=== PATIENT | male | born 1995 | race Caucasian/White ===

== ENCOUNTER 2018-05-06 22:46 | Emergency (ER) | payer BC ==
[2018-05-07] MEDS ORDERED: Oxymetazoline 0.05% NASAL SPR* 15 ML BTL RIGHT NARE ONE (00:16)
--- NOTE | 2018-05-07 00:28 | ED ---
Throat Pain/Nasal Congestion - HPI Summary HPI Summary: Patient is an otherwise healthy 22-year-old male presenting to the ED with right -sided nosebleed since approximately 8:30 PM this evening. He states the nosebleed has been intermittent. He has had this in the past with weather changes, but usually this will stop after several minutes. He has been using paper towels and gauze, but has not used any pinching motion or any medications to cook helper dessert in the cessation of bleeding. He denies any blood disorders, blood thinners. He does endorse having a glass of wine around 8:30 when this started. - History of Current Complaint Chief Complaint: EDEpistaxis Time Seen by Provider: 05/07/18 00:00 Hx Obtained From: Patient Onset/Duration: Sudden Onset Severity: Moderate Associated Signs And Symptoms: Positive: Negative - Epiglottits Risk Factors Epiglottis Risk Factors: Negative - Allergies/Home Medications Allergies/Adverse Reactions: Allergies Allergy/AdvReac Type Severity Reaction Status Date / Time No Known Allergies Allergy Verified 05/06/18 22:57 Home Medications: Home Medications NK [No Home Medications Reported] 05/07/18 [History Confirmed 05/07/18] PMH/Surg Hx/FS Hx/Imm Hx Previously Healthy: Yes - Immunization History Hx Pertussis Vaccination: No Immunizations Up to Date: Yes Infectious Disease History: No Infectious Disease History: Denies: Traveled Outside the [place] in Last 30 Days - Social History Occupation: Unemployed Lives: Dormitory/Roommates Alcohol Use: Occasionally Hx Substance Use: No Substance Use Type: Reports: None Hx Tobacco Use: No Smoking Status (MU): Never Smoked Tobacco Review of Systems Constitutional: Negative Negative: Fever, Chills, Fatigue, Skin Diaphoresis Positive: Other - epistaxis Negative: Palpitations, Chest Pain Negative: Shortness Of Breath, Cough Genitourinary: Negative Positive: no symptoms reported, see HPI Negative: Arthralgia, Myalgia Negative: Rash, Bruising Neurological: Negative All Other Systems Reviewed And Are Negative: Yes - neck Physical Exam Triage Information Reviewed: Yes Vital Signs On Initial Exam: Initial Vitals Temp Pulse Resp BP Pulse Ox 99.2 F 75 16 147/87 96 05/06/18 22:54 05/06/18 22:54 05/06/18 22:54 05/06/18 22:54 05/06/18 22:54 Vital Signs Reviewed: Yes Appearance: Positive: Well-Appearing, Well-Nourished Skin: Positive: Warm, Skin Color Reflects Adequate Perfusion Head/Face: Positive: Normal Head/Face Inspection Eyes: Positive: EOMI, LOR, Conjunctiva Clear Neck: Positive: Supple, Nontender Respiratory/Lung Sounds: Positive: Clear to Auscultation, Breath Sounds Present Cardiovascular: Positive: RRR, Pulses are Symmetrical in both Upper and Lower Extremities. Negative: Leg Edema Left, Leg Edema Right Musculoskeletal: Positive: Strength/ROM Intact Neurological: Positive: Speech Normal Psychiatric: Positive: Normal, Affect/Mood Appropriate AVPU Assessment: Alert Diagnostics - Vital Signs Vital Signs Temp Pulse Resp BP Pulse Ox 05/06/18 22:54 99.2 F 75 16 147/87 96 - Laboratory Lab Statement: Any lab studies that have been ordered have been reviewed, and results considered in the medical decision making process. EENT Course/Dx - Course Course Of Treatment: On physical examination, there is no evidence of any lesion inside the nare. He is not actively bleeding. Afrin 2 sprays applied. Observed for 40 minutes wihtout recurrence of bleeding. Continues to be asymptomatic. He will be discharged with abx ointment to be applied 3x daily. - Diagnoses Provider Diagnoses: Epistaxis Discharge - Sign-Out/Discharge Documenting (check all that apply): Patient Departure - Discharge Plan Condition: Stable Disposition: HOME Patient Education Materials: Nosebleed (ED) Referrals: No Primary Care Phys,NOPCP [Primary Care Provider] - Additional Instructions: Nasal spray 2 sprays only if nose begins to bleed again This should be followed by pinching of the nose x 20 minutes without checking Continue with antibiotic ointment in the nose three times daily x 24 hours - Billing Disposition and Condition Condition: STABLE Disposition: Home
[2018-05-07 01:40] VITALS: BP 148/92
== END 2018-05-07 01:39 | disposition home or self-care (01) ==
LOC: ED 22:46
DX: R04.0 Epistaxis (principal)
CPT/HCPCS: 99281; A9270-GY